=== PATIENT | male | born 1950 | race Caucasian/White ===

== ENCOUNTER 2021-02-12 10:53 | Day surgery (SDC) | payer MEDICARE, OTHER ==
[~2021-02-12 10:53] MED LIST: Lactated Ringers 1,000 ML IV SCH; Lidocaine 1%/Sod Bicarbonate in NS 8.4% 1 ML Syringe IDERM PRN; Sodium Chloride 0.9% 10 ML Syringe FLUSH PRN
[2021-02-12] MEDS ORDERED: Lidocaine 1% 50 ML MDV ONE (11:29)
[2021-02-12] MEDS ORDERED: Bupivacaine 0.25% 10 ML SDV ONE (11:29)
--- NOTE | 2021-02-22 07:29 | PCM.OPNOTE ---
- General Post-Op/Procedure Note Date of Surgery/Procedure: 02/12/21 Operative Procedure(s): left middle finger a1 ahsan release Pre Op Diagnosis: left middle finger stenosing tenosynovitis Post-Op Diagnosis: Same Anesthesia Technique: Local Primary Surgeon: Davonte MARIO in mLs: 0 Complications: None Condition: Good
--- NOTE | 2021-02-22 08:09 | OR ---
DATE OF OPERATION: 02/12/2021 SURGEON: Davonte Dias MD OPERATION PERFORMED: Left middle finger A1 ahsan release. PREOPERATIVE DIAGNOSIS: Left middle finger stenosing tenosynovitis. POSTOPERATIVE DIAGNOSIS: Left middle finger stenosing tenosynovitis. ANESTHESIA: Local only. ANESTHESIA PROVIDER: None. WELCOME CENTER ATTENDANT: None. ESTIMATED BLOOD LOSS: 0 mL. COMPLICATIONS: None. CONDITION: Stable. DESCRIPTION OF PROCEDURE: The patient was identified in the preoperative holding area. Proper site was marked and identified by the surgeon. The patient was taken back to the operative theater where left upper extremity was then sterilely prepped and draped in the usual sterile fashion. OR time-out was performed. The patient did not receive antibiotic, was not indicated for a soft tissue hand procedure. At this time, 1% lidocaine without epinephrine and 0.25% Marcaine without epinephrine were then used to anesthetize over the A1 ahsan region. A transverse incision was made. Blunt dissection was taken down to the A1 ahsan. With the use an of a [place] blade as well as a tenotomy, the A1 ahsan was released both proximally and distally making sure to stop short of the A2 ahsan. The patient was asked to make a fist multiple times. There was no catching, locking, or triggering noted. The tendon was otherwise intact. Adequate saline was irrigated through the wound. 4-0 nylon suture was used for closure of the skin. The patient had a sterile soft dressing applied and was sent to PACU in a stable condition. MMODAL /[id number]
== END 2021-02-12 12:34 | disposition home or self-care (01) ==
LOC: JD.SDS 10:53
PROVIDERS: ATTEND Orthopaedic Surgery
DX: M65.332 Trigger finger, left middle finger (principal); M65.842 Other synovitis and tenosynovitis, left hand; J44.9 Chronic obstructive pulmonary disease, unspecified; I10 Essential (primary) hypertension; E03.9 Hypothyroidism, unspecified; I25.2 Old myocardial infarction; E66.9 Obesity, unspecified; Z68.41 Body mass index [BMI] 40.0-44.9, adult; Z79.890 Hormone replacement therapy; Z79.82 Long term (current) use of aspirin; Z79.899 Other long term (current) drug therapy; Z87.891 Personal history of nicotine dependence; Z85.46 Personal history of malignant neoplasm of prostate; Z98.890 Other specified postprocedural states
CPT/HCPCS: 87641; J2001; J3490

== ENCOUNTER 2021-12-12 12:38 | Emergency (ER) | payer MEDICARE, OTHER ==
[2021-12-12] MEDS ORDERED: Sodium Chloride 0.9% 10 ML Syringe FLUSH PRN (13:24)
[2021-12-12] MEDS ORDERED: Sodium Chloride 0.9% 1,000 ML IV STA (13:24)
[2021-12-12] MEDS ORDERED: HYDROmorphone 0.5 MG/0.5 ML Syringe IVPUSH ONE (13:25)
[2021-12-12] MEDS ORDERED: Iopamidol 612 MG/ML 100 ML Bottle IVPUSH ONE (14:38)
[2021-12-12] MEDS ORDERED: Sodium Chloride 0.9% 10 ML Syringe FLUSH ONE (14:38)
== END 2021-12-12 20:06 | disposition home or self-care (01) ==
LOC: JD.ED 12:38
DX: K43.9 Ventral hernia without obstruction or gangrene (principal); J44.9 Chronic obstructive pulmonary disease, unspecified; E78.00 Pure hypercholesterolemia, unspecified; I25.2 Old myocardial infarction; E03.9 Hypothyroidism, unspecified; Z79.82 Long term (current) use of aspirin; Z79.899 Other long term (current) drug therapy; Z87.891 Personal history of nicotine dependence; Z20.822 Contact with and (suspected) exposure to COVID-19
CPT/HCPCS: 36415; 74177; 80053; 81001; 83690; 85025; 96374; 99284; J1170; J7030; Q9967; U0002